=== PATIENT | male | born 1975 | race Caucasian/White ===

== ENCOUNTER 2016-05-25 22:04 | Emergency (ER) | payer MEDICAID ==
[~2016-05-25] VITALS: Ht 172.7 cm; Wt 86.2 kg
[2016-05-26] MEDS: LORazepam 2MG/ML-1ML VIAL IM ONE (02:10)
[2016-05-26 02:23] VITALS: BP 162/91
== END 2016-05-26 02:46 | disposition home or self-care (01) ==
LOC: ER 22:04
DX: F41.9 Anxiety disorder, unspecified (principal); F17.210 Nicotine dependence, cigarettes, uncomplicated
CPT/HCPCS: 71010; 96372; 99284; J2060

== ENCOUNTER 2017-01-31 22:31 | Emergency (ER) | payer MEDICAID ==
[~2017-01-31] VITALS: Ht 172.7 cm; Wt 86.2 kg
[2017-02-01 01:19] LABS: Basophils # (auto) 0.1 uL; Basophils % (auto) 1.4 % (0.0-2.0); Eosinophils # (auto) 0.1 uL; Eosinophils % (auto) 0.6 % (0.0-7.0); Hematocrit 42.9 % (41.0-53.0); Lymphocytes # (auto) 1.8 uL; Lymphocytes % (auto) 19.1 % (10.0-50.0); Mean Corpuscular Hemoglobin 32.8 pg (28.0-32.0); Mean Corpuscular Hgb Conc. 34.9 g/dL (32.0-36.0); Mean Corpuscular Volume 94.1 fL (80.0-100.0); Mean Platelet Volume 8.4 fL (6.9-10.8); Monocytes # (auto) 0.6 uL; Monocytes % (auto) 6.5 % (0.0-12.0); Neutrophils % (auto) 72.4 % (37.0-80.0); Platelet Count (auto) 258 10^3/uL (140-450); Red Cell Distribution Width 13.1 % (11.8-14.3); White Blood Cell 9.6 10^3/uL (4.4-10.8)
[2017-02-01 01:37] LABS: Albumin 4.1 g/dL (3.4-5.0); Amylase 50 U/L (25-115); Anion Gap 8 (5-15); BUN/Creatinine Ratio 19.6; Blood Urea Nitrogen 18 mg/dL (7-18); Calcium 9.1 mg/dL (8.5-10.1); Carbon Dioxide 25 mmol/L (21-32); Chloride 101 mmol/L (98-107); GFR African American 116 mL/min; GFR Non-African American 96 mL/min; Glucose 103 mg/dL (74-106); Magnesium 2.3 mg/dL (1.6-2.6); Potassium 3.7 mmol/L (3.5-5.1); Sodium 134 mmol/L (136-145)
[2017-02-01 01:41] LABS: INR 0.97 (0.9-1.15); Partial Thromboplastin Time 28.8 sec (22.64-33.71); Prothrombin Time 10.6 sec (9.37-12.3)
[2017-02-01 01:42] LABS: Alkaline Phosphatase 106 U/L (45-117); Aspartate Aminotransferase 39 U/L (15-37); Bilirubin, Total 0.8 mg/dL (0.2-1.0); Total Protein 8.6 g/dL (6.4-8.2)
[2017-02-01 03:05] LABS: Urine Bilirubin Negative (Negative); Urine Blood Negative /uL (Negative); Urine Color Yellow (Yellow); Urine Glucose Normal (Normal); Urine Ketone 2+ (Negative); Urine Mucus FEW (None Seen); Urine Nitrite Negative (Negative); Urine RBC 26 /hpf (0 - 3); Urine Squamous Epithelial Cell FEW /hpf (<5); Urine Urobilinogen Normal (Negative)
[2017-02-01 07:23] VITALS: BP 143/99
[2017-02-01] MEDS ORDERED: SODIUM CHLORIDE 0.9% 1,000 ML IV ONE (08:21)
[2017-02-01] MEDS ORDERED: cefTRIAXone 1GM/10ml IVPUSH 10 ML IV ONE (08:30)
[2017-02-01] MEDS ORDERED: NALBUPHINE HCL 10 MG/1ml INJECTION IV ONE (08:30)
[2017-02-01] MEDS ORDERED: METOCLOPRAMIDE HCL 5MG/ml INJ 2ml VIAL IV ONE (08:30)
== END 2017-02-01 09:58 | disposition home or self-care (01) ==
LOC: ER 22:34
DX: K52.9 Noninfective gastroenteritis and colitis, unspecified (principal); N39.0 Urinary tract infection, site not specified; F15.10 Other stimulant abuse, uncomplicated; R51 Headache; F17.210 Nicotine dependence, cigarettes, uncomplicated
CPT/HCPCS: 36415; 70450; 71010; 74176; 80053; 80307; 80320; 81001; 82150; 83690; 83735; 84484; 85025; 85610; 85730; 96361; 96374; 96375; 99285; J2300; J2765; 96365

== ENCOUNTER 2020-02-02 00:30 | Emergency (ER) | payer MEDICAID ==
[~2020-02-02] VITALS: Ht 172.7 cm; Wt 86.2 kg
[2020-02-02 04:37] VITALS: BP 144/96
== END 2020-02-02 04:40 | disposition home or self-care (01) ==
LOC: ER 00:31
DX: M79.605 Pain in left leg (principal); F10.10 Alcohol abuse, uncomplicated; F17.210 Nicotine dependence, cigarettes, uncomplicated; V43.52XA Car driver injured in collision with other type car in traffic accident, initial encounter; Y93.89 Activity, other specified; Y92.488 Other paved roadways as the place of occurrence of the external cause; Y99.8 Other external cause status
CPT/HCPCS: 73590